=== PATIENT | male | born 1965 | race Caucasian/White ===

== ENCOUNTER 2018-01-14 07:07 | Emergency (ER) | payer BC ==
[2018-01-14 07:28] VITALS: BP 135/86
[2018-01-14] MEDS ORDERED: Doxycycline (NF) 100 MG TAB PO ONE (07:39)
[2018-01-14] MEDS ORDERED: DOXYcycline CAP(*) 100 MG ONE (07:49)
--- NOTE | 2018-01-14 07:53 | ED ---
Skin Complaint - HPI Summary HPI Summary: 52 yrold male with tick bite to the right medial thigh, onset yesterday, he believes he may have killed the tick trying to pull it out, but it was so small he could not remove it all the way. No other complaints. - History of Current Complaint Chief Complaint: UCGeneralIllness Time Seen by Provider: 01/14/18 07:26 Stated Complaint: TICK - RIGHT LEG Pain Intensity: 0 - Allergy/Home Medications Allergies/Adverse Reactions: Allergies Allergy/AdvReac Type Severity Reaction Status Date / Time ENVIRONMENTAL / SEASONAL Allergy SNEEZING, Uncoded 01/14/18 07:28 HAYFEVER CONGESTION Home Medications: Home Medications amLODIPine TAB* [Norvasc 5 mg TAB*] 5 mg PO DAILY 01/14/18 [History Confirmed ] PMH/Surg Hx/FS Hx/Imm Hx Endocrine/Hematology History: Denies: Hx Sickle Cell Disease Cardiovascular History: Reports: Hx Hypertension - CONTROLLED WITH MEDICATION, Other Cardiovascular Problems/Disorders - SEVERE WHITE COAT HYPERTENSION Respiratory History: Reports: Hx Asthma - CONTROLLED WITH MEDICATION GI History: Reports: Hx Gastroesophageal Reflux Disease - CONTROLLED WITH MEDICATION History: Denies: Other Problems/Disorders Musculoskeletal History: Denies: Other Musculoskeletal History Sensory History: Reports: Hx Contacts or Glasses - GLASSES WORN FOR NIGHT TIME DRIVING ONLY Denies: Hx Hearing Aid Opthamlomology History: Reports: Hx Contacts or Glasses - GLASSES WORN FOR NIGHT TIME DRIVING ONLY Psychiatric History: Reports: Hx Anxiety, Hx Depression - Surgical History Surgery Procedure, Year, and Place: 1981 LUMP REMOVED RIGHT BREAST - [facility]. 2001 ARTHROSCOPIC LEFT WRIST - [place]. 2012 LEFT SHOULDER MANIPULATION, [facility] Hx Anesthesia Reactions: No Infectious Disease History: No Infectious Disease History: Denies: Traveled Outside the [place] in Last 30 Days - Family History Known Family History: Positive: None - Social History Alcohol Use: Occasionally Substance Use Type: Reports: None Smoking Status (MU): Never Smoked Tobacco Review of Systems Constitutional: Negative Positive: Other - tick bite All Other Systems Reviewed And Are Negative: Yes Physical Exam Triage Information Reviewed: Yes Vital Signs On Initial Exam: Initial Vitals Temp Pulse Resp BP Pulse Ox 97.5 F 59 16 135/86 100 01/14/18 07:21 01/14/18 07:21 01/14/18 07:21 01/14/18 07:21 01/14/18 07:21 Vital Signs Reviewed: Yes Appearance: Positive: Well-Appearing, No Pain Distress Skin: Positive: Other - very small tick attached to the right medial posterior thigh. No redness or induration. Head/Face: Positive: Normal Head/Face Inspection Eyes: Positive: EOMI ENT: Positive: Normal ENT inspection Respiratory/Lung Sounds: Positive: Other - normal effort Musculoskeletal: Positive: Strength/ROM Intact Neurological: Positive: Sensory/Motor Intact, Normal Gait, Speech Normal Psychiatric: Positive: Normal - Malena Coma Scale Best Eye Response: 4 - Spontaneous Best Motor Response: 6 - Obeys Commands Best Verbal Response: 5 - Oriented Coma Scale Total: 15 Procedures - Procedure Summary Procedure Summary: 52 yr old male with tick medial right posterior thigh. Tick easily removed with counter clockwise action of a cotton swab. No redness, no erythema or swelling around the area. Diagnostics - Vital Signs Vital Signs Temp Pulse Resp BP Pulse Ox 01/14/18 07:21 97.5 F 59 16 135/86 100 - Laboratory Lab Statement: Any lab studies that have been ordered have been reviewed, and results considered in the medical decision making process. Course/Dx - Course Course Of Treatment: 52 yr old with tick bite and removal by me. 200 doxy prophylaxis given as requested. - Diagnoses Provider Diagnoses: Tick bite Discharge - Sign-Out/Discharge Documenting (check all that apply): Discharge/Admit/Transfer - Discharge Plan Condition: Good Disposition: HOME Patient Education Materials: Tick Bite (ED) Referrals: Eleazar Mcarthur MD [Primary Care Provider] - 2 Days - Billing Disposition and Condition Condition: GOOD Disposition: HOME
== END 2018-01-14 07:52 | disposition home or self-care (01) ==
LOC: UCCORT 07:07
DX: S70.361A Insect bite (nonvenomous), right thigh, initial encounter (principal); W57.XXXA Bitten or stung by nonvenomous insect and other nonvenomous arthropods, initial encounter; Y93.9 Activity, unspecified; Y92.9 Unspecified place or not applicable; I10 Essential (primary) hypertension; J45.909 Unspecified asthma, uncomplicated; K21.9 Gastro-esophageal reflux disease without esophagitis
CPT/HCPCS: 99202; A9270-GY; G0463